=== PATIENT | male | born 1955 | race Caucasian/White ===

== ENCOUNTER → 2017-12-07 | Outpatient (CLI) | payer OTHER ==
[~2017-12-07] MED LIST: ATEN25 PO; Bactrim Ds Tab1 EACH PO; HYDACE5 PO; HYDCHL12.5 PO; LISHYD2012; LOSARTAN POTAS100 MG PO; METO25ER PO; NAPR500 PO; PRAV20 PO; Protonix40 MG PO; RXHYDACE PO; RXNAPNA550 PO; TAMS.4ER PO
== END ==
LOC: LAB EV 22:15
DX: R10.13 Epigastric pain (principal)
CPT/HCPCS: 87338

== ENCOUNTER 2018-01-05 14:22 | Inpatient (IN) | payer OTHER ==
[~2018-01-05] VITALS: Ht 167.6 cm; Wt 99.8 kg
[~2018-01-05 14:22] MED LIST changes: +CHOL10002 PO; +CYCL10 PO; +HYDR1TAB94 PO; +NAPR500ERA PO; +ONDA4 PO; +PANT20 PO
[2018-01-05 15:07] LABS: BASOPHILS ABSOLUTE AUTO 0.01 K/mm3 (0.00-0.23); BASOPHILS PERCENT AUTO 0 % (0-2); EOSINOPHILS PERCENT AUTO 0 % (0-6); Hematocrit 45.9 % (37.0-53.0); Hemoglobin 15.3 g/dL (13.5-17.5); IMMATURE GRAN ABSOLUTE AUTO 0.02 K/mm3 (0.00-0.10); IMMATURE GRAN PERCENT AUTO 0 % (0-1); LYMPHOCYTES PERCENT AUTO 5 % (21-46); MONOCYTES ABSOLUTE AUTO 1.19 K/mm3 (0.16-1.47); MONOCYTES PERCENT AUTO 12 % (4-13); Mean Corpuscular HGB 31.1 pg (26.0-34.0); Mean Corpuscular HGB Conc 33.3 g/dL (31.5-36.5); Mean Corpuscular Volume 93 fL (80-100); Mean Platelet Volume 10.6 fL (9.1-12.4); NEUTROPHILS ABSOLUTE AUTO 8.12 K/mm3 (1.96-9.15); NEUTROPHILS PERCENT AUTO 83 % (41-73); Platelet Count 197 K/mm3 (150-400); RDW Coefficient Variation 13.5 % (11.7-14.2); RDW Standard Deviation 46.3 fL (35.1-46.3); Red Blood Cell Count 4.92 M/mm3 (4.30-5.90); White Blood Cell Count 9.84 K/mm3 (4.00-11.30)
[2018-01-05 15:20] LABS: Alanine Aminotransfer (ALT/SGP 29 U/L (12-78); Albumin, Blood 3.8 g/dL (3.4-5.0); Alk Phos 66 U/L (50-136); Anion Gap 8 mmol/L (6-16); Aspartate Aminotrans (AST/SGOT 19 U/L (12-37); Bilirubin, Total 0.8 mg/dL (0.1-1.0); Blood Urea Nitrogen 21 mg/dL (8-24); Bun/Creatinine Ratio 24.2 (12.0-20.0); CO2, Blood 34 mmol/L (21-32); Calcium, Blood 9.4 mg/dL (8.5-10.1); Chloride, Blood 97 mmol/L (98-108); Creatinine, Blood 0.87 mg/dL (0.60-1.20); Globulin, Blood 3.9 g/dL (2.2-4.0); Glomerular Filtration Rate >60 (60-); Glucose, Blood 138 mg/dL (70-99); Potassium, Blood 3.6 mmol/L (3.5-5.5); Sodium, Blood 139 mmol/L (136-145); Total Protein, Blood 7.7 g/dL (6.4-8.2)
[2018-01-06 05:41] LABS: BASOPHILS PERCENT AUTO 0 % (0-2); EOSINOPHILS ABSOLUTE AUTO 0.02 K/mm3 (0.00-0.68); EOSINOPHILS PERCENT AUTO 0 % (0-6); Hematocrit 42.1 % (37.0-53.0); Hemoglobin 13.9 g/dL (13.5-17.5); IMMATURE GRAN ABSOLUTE AUTO 0.02 K/mm3 (0.00-0.10); IMMATURE GRAN PERCENT AUTO 0 % (0-1); LYMPHOCYTES ABSOLUTE AUTO 0.64 K/mm3 (0.84-5.20); LYMPHOCYTES PERCENT AUTO 9 % (21-46); MONOCYTES ABSOLUTE AUTO 1.16 K/mm3 (0.16-1.47); MONOCYTES PERCENT AUTO 17 % (4-13); Mean Corpuscular Volume 94 fL (80-100); Mean Platelet Volume 10.6 fL (9.1-12.4); NEUTROPHILS ABSOLUTE AUTO 5.21 K/mm3 (1.96-9.15); NEUTROPHILS PERCENT AUTO 74 % (41-73); Platelet Count 166 K/mm3 (150-400); RDW Coefficient Variation 13.7 % (11.7-14.2); RDW Standard Deviation 47.1 fL (35.1-46.3); Red Blood Cell Count 4.49 M/mm3 (4.30-5.90); White Blood Cell Count 7.05 K/mm3 (4.00-11.30)
[2018-01-06 06:00] LABS: Anion Gap 7 mmol/L (6-16); Blood Urea Nitrogen 19 mg/dL (8-24); Bun/Creatinine Ratio 22.3 (12.0-20.0); CO2, Blood 32 mmol/L (21-32); Calcium, Blood 8.9 mg/dL (8.5-10.1); Chloride, Blood 103 mmol/L (98-108); Creatinine, Blood 0.85 mg/dL (0.60-1.20); Glomerular Filtration Rate >60 (60-); Glucose, Blood 127 mg/dL (70-99); Potassium, Blood 3.4 mmol/L (3.5-5.5); Sodium, Blood 142 mmol/L (136-145)
[2018-01-07 08:16] LABS: BASOPHILS ABSOLUTE AUTO 0.01 K/mm3 (0.00-0.23); BASOPHILS PERCENT AUTO 0 % (0-2); EOSINOPHILS ABSOLUTE AUTO 0.06 K/mm3 (0.00-0.68); EOSINOPHILS PERCENT AUTO 1 % (0-6); Hematocrit 39.8 % (37.0-53.0); Hemoglobin 12.9 g/dL (13.5-17.5); IMMATURE GRAN ABSOLUTE AUTO 0.03 K/mm3 (0.00-0.10); IMMATURE GRAN PERCENT AUTO 0 % (0-1); LYMPHOCYTES ABSOLUTE AUTO 0.48 K/mm3 (0.84-5.20); LYMPHOCYTES PERCENT AUTO 6 % (21-46); MONOCYTES ABSOLUTE AUTO 1.18 K/mm3 (0.16-1.47); MONOCYTES PERCENT AUTO 15 % (4-13); Mean Corpuscular HGB 30.4 pg (26.0-34.0); Mean Corpuscular HGB Conc 32.4 g/dL (31.5-36.5); Mean Corpuscular Volume 94 fL (80-100); Mean Platelet Volume 10.6 fL (9.1-12.4); NEUTROPHILS ABSOLUTE AUTO 6.19 K/mm3 (1.96-9.15); NEUTROPHILS PERCENT AUTO 78 % (41-73); Platelet Count 134 K/mm3 (150-400); RDW Coefficient Variation 13.5 % (11.7-14.2); RDW Standard Deviation 46.6 fL (35.1-46.3); Red Blood Cell Count 4.24 M/mm3 (4.30-5.90); White Blood Cell Count 7.95 K/mm3 (4.00-11.30)
[2018-01-07 08:36] LABS: Anion Gap 6 mmol/L (6-16); Blood Urea Nitrogen 14 mg/dL (8-24); Bun/Creatinine Ratio 19.9 (12.0-20.0); CO2, Blood 31 mmol/L (21-32); Calcium, Blood 8.3 mg/dL (8.5-10.1); Chloride, Blood 103 mmol/L (98-108); Creatinine, Blood 0.71 mg/dL (0.60-1.20); Glomerular Filtration Rate >60 (60-); Glucose, Blood 143 mg/dL (70-99); Potassium, Blood 3.9 mmol/L (3.5-5.5); Sodium, Blood 140 mmol/L (136-145)
[2018-01-09 05:46] LABS: BASOPHILS ABSOLUTE AUTO 0.01 K/mm3 (0.00-0.23); BASOPHILS PERCENT AUTO 0 % (0-2); EOSINOPHILS ABSOLUTE AUTO 0.13 K/mm3 (0.00-0.68); EOSINOPHILS PERCENT AUTO 1 % (0-6); Hematocrit 39.4 % (37.0-53.0); IMMATURE GRAN ABSOLUTE AUTO 0.04 K/mm3 (0.00-0.10); IMMATURE GRAN PERCENT AUTO 0 % (0-1); LYMPHOCYTES PERCENT AUTO 6 % (21-46); MONOCYTES ABSOLUTE AUTO 1.16 K/mm3 (0.16-1.47); MONOCYTES PERCENT AUTO 13 % (4-13); Mean Corpuscular HGB 30.8 pg (26.0-34.0); Mean Corpuscular Volume 93 fL (80-100); Mean Platelet Volume 10.1 fL (9.1-12.4); NEUTROPHILS ABSOLUTE AUTO 7.13 K/mm3 (1.96-9.15); NEUTROPHILS PERCENT AUTO 80 % (41-73); Platelet Count 143 K/mm3 (150-400); RDW Coefficient Variation 13.1 % (11.7-14.2); RDW Standard Deviation 44.7 fL (35.1-46.3); Red Blood Cell Count 4.22 M/mm3 (4.30-5.90); White Blood Cell Count 8.97 K/mm3 (4.00-11.30)
[2018-01-09 06:08] LABS: Anion Gap 9 mmol/L (6-16); Blood Urea Nitrogen 16 mg/dL (8-24); Bun/Creatinine Ratio 26.3 (12.0-20.0); CO2, Blood 29 mmol/L (21-32); Calcium, Blood 8.2 mg/dL (8.5-10.1); Chloride, Blood 101 mmol/L (98-108); Creatinine, Blood 0.61 mg/dL (0.60-1.20); Glomerular Filtration Rate >60 (60-); Glucose, Blood 139 mg/dL (70-99); Magnesium, Blood 2.3 mg/dL (1.6-2.4); Potassium, Blood 3.5 mmol/L (3.5-5.5); Sodium, Blood 139 mmol/L (136-145); Triglycerides 168 mg/dL (30-160)
[2018-01-10 06:33] LABS: Anion Gap 9 mmol/L (6-16); Blood Urea Nitrogen 15 mg/dL (8-24); CO2, Blood 27 mmol/L (21-32); Calcium, Blood 8.4 mg/dL (8.5-10.1); Chloride, Blood 101 mmol/L (98-108); Creatinine, Blood 0.68 mg/dL (0.60-1.20); Glomerular Filtration Rate >60 (60-); Glucose, Blood 137 mg/dL (70-99); Magnesium, Blood 2.4 mg/dL (1.6-2.4); Phosphorus, Blood 3.2 mg/dL (2.5-4.9); Potassium, Blood 3.5 mmol/L (3.5-5.5); Sodium, Blood 137 mmol/L (136-145)
== END 2018-01-10 16:38 | disposition home or self-care (01) | DRG 355 ==
LOC: ER 14:22 → SURS 17:38
PROVIDERS: Family Medicine; Internal Medicine; Physician Assistant; Surgery
PROC: 0D9670Z Drainage of Stomach with Drainage Device, Via Natural or Artificial Opening (ICD-10-PCS; 2018-01-05)
PROC: 0WUF0JZ Supplement Abdominal Wall with Synthetic Substitute, Open Approach (ICD-10-PCS; principal; 2018-01-06 09:00)
DX: K43.0 Incisional hernia with obstruction, without gangrene (principal); M51.36 Other intervertebral disc degeneration, lumbar region; M19.90 Unspecified osteoarthritis, unspecified site; I10 Essential (primary) hypertension; E87.6 Hypokalemia; E83.39 Other disorders of phosphorus metabolism; K40.20 Bilateral inguinal hernia, without obstruction or gangrene, not specified as recurrent; Z79.899 Other long term (current) drug therapy; Z88.5 Allergy status to narcotic agent
CPT/HCPCS: 36415; 74018; 74019; 74177; 80048; 80053; 82947; 83690; 83735; 84100; 84478; 85025; 87070; 87081; 88304; 94760; 96374; 96375; 99285-25; C1781; C9113; J0330; J0360; J0610; J0694; J1100; J1650; J1885; J2001; J2250; J2370; J2405; J2710; J2765; J3010; J3370; J3411; J3475; J3480; J7030; J7070; J7120; J7131; Q9967

== ENCOUNTER 2018-04-02 07:30 | Day surgery (SDC) | payer OTHER ==
[~2018-04-02] VITALS: Ht 170.2 cm; Wt 100.7 kg
[2018-04-02] MEDS ORDERED: FISH OIL + D31 EACH (08:02)
--- NOTE | 2018-04-02 09:16 | NUR ---
04/02/18 0916 Mercy Guerrero late entry 0900 UPDATED PT ON ROOM DELAY, PREVIOUS CASE RUNNING OVER. PT RESTING IN BED, BED IN LOWEST POSITION, CALL LIGHT IN REACH. 912 PT STILL RESTING IN BED. CALL LGIHT IN REACH.
--- NOTE | 2018-04-02 10:19 | NUR ---
04/02/18 [id number] Mercy Guerrero PT READY FOR DC HOME, WAITING FOR RIDE. PT DENIES QUESTIONS ON DC INSTRUCTIONS AND IS RESTING IN RECLINER IN SDU 2. CALL LIGHT IN REACH.
== END 2018-04-02 10:18 | disposition home or self-care (01) ==
LOC: ORSCSDS 07:30
PROVIDERS: Internal Medicine Gastroenterology
PROC: 0DBK8ZX Excision of Ascending Colon, Via Natural or Artificial Opening Endoscopic, Diagnostic (ICD-10-PCS; principal; 2018-04-02 08:45)
PROC: 0DBH8ZX Excision of Cecum, Via Natural or Artificial Opening Endoscopic, Diagnostic (ICD-10-PCS; principal; 2018-04-02 08:45)
PROC: 0DBM8ZX Excision of Descending Colon, Via Natural or Artificial Opening Endoscopic, Diagnostic (ICD-10-PCS; principal; 2018-04-02 08:45)
DX: Z86.010 Personal history of colon polyps (principal); Z12.11 Encounter for screening for malignant neoplasm of colon; D12.2 Benign neoplasm of ascending colon; D12.0 Benign neoplasm of cecum; D12.4 Benign neoplasm of descending colon; K57.30 Diverticulosis of large intestine without perforation or abscess without bleeding; K64.8 Other hemorrhoids; I10 Essential (primary) hypertension; K21.9 Gastro-esophageal reflux disease without esophagitis; Z79.899 Other long term (current) drug therapy
CPT/HCPCS: 88305; J7120

== ENCOUNTER 2022-04-24 07:56 | Day surgery (SDC) | payer OTHER ==
[~2022-04-24] VITALS: Ht 167.6 cm; Wt 95.0 kg
[~2022-04-24 07:56] MED LIST changes: +FISH OIL + D31 EACH
[2022-04-24] MEDS ORDERED: Calcium Acetat667 MG (08:47)
[2022-04-24] MEDS ORDERED: Vitamin C100 M1 (08:47)
== END 2022-04-24 10:20 | disposition home or self-care (01) ==
LOC: ORSCSDS 07:56
PROVIDERS: Internal Medicine Gastroenterology
PROC: 0DJD8ZZ Inspection of Lower Intestinal Tract, Via Natural or Artificial Opening Endoscopic (ICD-10-PCS; principal; 2022-04-24 09:30)
DX: Z12.11 Encounter for screening for malignant neoplasm of colon (principal); Z86.010 Personal history of colon polyps; Z80.0 Family history of malignant neoplasm of digestive organs; K64.4 Residual hemorrhoidal skin tags; I10 Essential (primary) hypertension; E78.5 Hyperlipidemia, unspecified; Z79.82 Long term (current) use of aspirin; Z79.899 Other long term (current) drug therapy
CPT/HCPCS: J2704; J7120

== ENCOUNTER → 2022-05-15 | Outpatient (CLI) | payer OTHER ==
[~2022-05-15] MED LIST changes: +Calcium Acetat667 MG; +Vitamin C100 M1
[2022-05-15 12:11] LABS: BASOPHILS ABSOLUTE AUTO 0.02 K/mm3 (0.00-0.23); BASOPHILS PERCENT AUTO 0 % (0-2); EOSINOPHILS ABSOLUTE AUTO 0.06 K/mm3 (0.00-0.68); EOSINOPHILS PERCENT AUTO 1 % (0-6); Hematocrit 40.2 % (37.0-53.0); IMMATURE GRAN ABSOLUTE AUTO 0.04 K/mm3 (0.00-0.10); IMMATURE GRAN PERCENT AUTO 1 % (0-1); LYMPHOCYTES ABSOLUTE AUTO 0.45 K/mm3 (0.84-5.20); LYMPHOCYTES PERCENT AUTO 5 % (21-46); MONOCYTES ABSOLUTE AUTO 1.08 K/mm3 (0.16-1.47); MONOCYTES PERCENT AUTO 13 % (4-13); Mean Corpuscular HGB 31.2 pg (26.0-34.0); Mean Corpuscular HGB Conc 34.8 g/dL (31.5-36.5); Mean Corpuscular Volume 90 fL (80-100); NEUTROPHILS ABSOLUTE AUTO 6.92 K/mm3 (1.96-9.15); NEUTROPHILS PERCENT AUTO 81 % (41-73); RDW Coefficient Variation 13.6 % (11.7-14.2); Red Blood Cell Count 4.49 M/mm3 (4.30-5.90); White Blood Cell Count 8.57 K/mm3 (4.00-11.30)
[2022-05-15 12:19] LABS: Albumin, Blood 3.5 g/dL (3.4-5.0); Albumin/Globulin Ratio 1.3 (0.8-1.8); Bilirubin, Total 0.8 mg/dL (0.1-1.0); Bun/Creatinine Ratio 29.9 (12.0-20.0); Calcium, Blood 9.1 mg/dL (8.5-10.1); Creatinine, Blood 0.87 mg/dL (0.60-1.20); Globulin, Blood 2.8 g/dL (2.2-4.0); Potassium, Blood 4.1 mmol/L (3.5-5.5); Total Protein, Blood 6.3 g/dL (6.4-8.2)
[2022-05-15 14:15] LABS: Platelet Count 118 K/mm3 (150-400)
== END | disposition home or self-care (01) ==
LOC: LAB SHORT 12:03 → LAB 12:03
PROVIDERS: Family Medicine
DX: R55 Syncope and collapse (principal)
CPT/HCPCS: 80053; 85025

== ENCOUNTER 2024-04-03 18:33 | Observation (INO) | payer OTHER ==
[~2024-04-03] VITALS: Ht 167.6 cm; Wt 95.8 kg
[2024-04-04] MEDS ORDERED: Aspirin 81 MG Chew PO ONE (02:45)
[2024-04-04] MEDS ORDERED: FLU VACC TS2024-25(6MOS UP)/PF 45 MCG/0.5 ML SYRINGE IM ONE (02:50)
[2024-04-04] MEDS ORDERED: NS 1,000 ML IV SCH (02:55)
[2024-04-04] MEDS ORDERED: Ondansetron HCl 2 MG / ML 2ML Vial IV PRN (02:55)
[2024-04-04] MEDS ORDERED: FentaNYL Citrate 50 MCG/ML 2 ML Injection IV PRN (02:55)
[2024-04-04] MEDS ORDERED: Nitroglycerin 0.4 MG SUBL SL PRN (02:55)
[2024-04-04] MEDS ORDERED: Mag Hydrox/Al Hydrox/Simeth 18 ML,Lidocaine 2% Viscous Soln 9 ML,Atropine/Scopalam/Hyos... PO PRN (03:05)
[2024-04-04 04:54] LABS: BASOPHILS ABSOLUTE AUTO 0.02 K/mm3 (0.00-0.23); BASOPHILS PERCENT AUTO 0 % (0-2); EOSINOPHILS ABSOLUTE AUTO 0.13 K/mm3 (0.00-0.68); EOSINOPHILS PERCENT AUTO 3 % (0-6); IMMATURE GRAN ABSOLUTE AUTO 0.01 K/mm3 (0.00-0.10); IMMATURE GRAN PERCENT AUTO 0 % (0-1); LYMPHOCYTES PERCENT AUTO 11 % (21-46); MONOCYTES ABSOLUTE AUTO 0.84 K/mm3 (0.16-1.47); MONOCYTES PERCENT AUTO 18 % (4-13); Mean Corpuscular HGB 33.2 pg (26.0-34.0); Mean Corpuscular HGB Conc 35.1 g/dL (31.5-36.5); Mean Corpuscular Volume 94 fL (80-100); Mean Platelet Volume 10.4 fL (9.1-12.4); NEUTROPHILS ABSOLUTE AUTO 3.17 K/mm3 (1.96-9.15); NEUTROPHILS PERCENT AUTO 68 % (41-73); Platelet Count 127 K/mm3 (150-400); RDW Standard Deviation 44.8 fL (35.1-46.3); Red Blood Cell Count 3.92 M/mm3 (4.30-5.90); White Blood Cell Count 4.67 K/mm3 (4.00-11.30)
[2024-04-04 05:26] LABS: Albumin, Blood 3.5 g/dL (3.4-5.0); Albumin/Globulin Ratio 1.3 (0.8-1.8); Bilirubin, Total 0.4 mg/dL (0.1-1.0); Bun/Creatinine Ratio 28.8 (12.0-20.0); Calcium, Blood 8.8 mg/dL (8.5-10.1); Creatinine, Blood 0.8 mg/dL (0.60-1.20); Globulin, Blood 2.7 g/dL (2.2-4.0); Potassium, Blood 3.8 mmol/L (3.5-5.5); Total Protein, Blood 6.2 g/dL (6.4-8.2)
[2024-04-04] MEDS ORDERED: Atorvastatin 40 MG Tab PO SCH (06:00)
[2024-04-04] MEDS ORDERED: Clopidogrel Bisulfate 300 MG Cap PO ONE (06:00)
[2024-04-04 06:21] LABS: Anti-Xa UFH, PHA Monitoring <0.10 IU/mL; International Normalized Ratio 0.99; Prothrombin Time Results 10.6 Sec (9.7-11.5)
[2024-04-04] MEDS ORDERED: Heparin Sodium 5000 Units/ML 1ML MDV IV ONE ×2 (06:55→09:55)
[2024-04-04] MEDS ORDERED: Heparin Sodium,Porcine/0.5 NS 500 ML IV SCH (06:55)
[2024-04-04] MEDS ORDERED: Aspirin 81 MG Chew PO SCH (09:00)
[2024-04-04] MEDS ORDERED: Enoxaparin 40 MG/0.4 ML SYR SC SCH (09:00)
[2024-04-04] MEDS ORDERED: Clopidogrel Bisulfate 75 MG Tab ONE (09:16)
[2024-04-04] MEDS ORDERED: CALCIUM CIT 311 EAC7 PO (12:01)
[2024-04-04] MEDS ORDERED: ATOR10 PO (12:02)
[2024-04-04] MEDS ORDERED: AMLO5 PO (12:03)
[2024-04-04 12:17] VITALS: BP 154/84
--- NOTE | 2024-04-04 12:26 | NUR ---
arrival to pcu patient arrived to pcu from [facility] via [facility] and transfered from [facility] to pcu bed independently and walked from the hallway into the room. patient is independent at baseline and instructed to call and dont fall. patient verbalized understanding. patient is alert and oriented x4. neuro is inact. perrla. patient denies pain, chest pain/pressure or shortness of breath. patient voids independently and last bowel movement was yesterday. patient has bruising scattered on arms from playing with his puppy, otherwise skin is clean dry and intact. see shift assessment for further detials. plan for stress test and doing resting portion today and stress tomorrow. echo in room now.
[2024-04-04 15:38] VITALS: BP 135/70
--- NOTE | 2024-04-04 17:18 | NUR ---
shift summary neuro remains intact and unchanged. vitals remain stable. tele sinus rhythm. plan to be npo at midnight besides water for stress test tomorrow morning and no caffiene past 1900 tonight. patient aware and verbalized understanding. no acute changes. plan remains up to date
[2024-04-04 20:31] VITALS: BP 159/76
[2024-04-04 23:28] VITALS: BP 148/94
[2024-04-05 03:58] VITALS: BP 159/74
[2024-04-05 04:32] LABS: BASOPHILS ABSOLUTE AUTO 0.02 K/mm3 (0.00-0.23); BASOPHILS PERCENT AUTO 1 % (0-2); EOSINOPHILS ABSOLUTE AUTO 0.13 K/mm3 (0.00-0.68); EOSINOPHILS PERCENT AUTO 3 % (0-6); Hematocrit 37.4 % (37.0-53.0); Hemoglobin 13.1 g/dL (13.5-17.5); IMMATURE GRAN ABSOLUTE AUTO 0.01 K/mm3 (0.00-0.10); IMMATURE GRAN PERCENT AUTO 0 % (0-1); LYMPHOCYTES ABSOLUTE AUTO 0.57 K/mm3 (0.84-5.20); LYMPHOCYTES PERCENT AUTO 13 % (21-46); MONOCYTES ABSOLUTE AUTO 0.55 K/mm3 (0.16-1.47); MONOCYTES PERCENT AUTO 13 % (4-13); Mean Corpuscular HGB 32.9 pg (26.0-34.0); Mean Corpuscular Volume 94 fL (80-100); Mean Platelet Volume 10.2 fL (9.1-12.4); NEUTROPHILS PERCENT AUTO 70 % (41-73); Platelet Count 123 K/mm3 (150-400); RDW Coefficient Variation 12.8 % (11.7-14.2); RDW Standard Deviation 44.4 fL (35.1-46.3); Red Blood Cell Count 3.98 M/mm3 (4.30-5.90); White Blood Cell Count 4.28 K/mm3 (4.00-11.30)
[2024-04-05 04:49] LABS: Albumin, Blood 3.4 g/dL (3.4-5.0); Anion Gap 8 mmol/L (3-11); Blood Urea Nitrogen 17 mg/dL (8-24); Bun/Creatinine Ratio 24.1 (12.0-20.0); CO2, Blood 28 mmol/L (21-32); Calcium, Blood 9.1 mg/dL (8.5-10.1); Chloride, Blood 109 mmol/L (98-108); Creatinine, Blood 0.71 mg/dL (0.60-1.20); Glomerular Filtration Rate 99 (60-); Glucose, Blood 131 mg/dL (70-99); Magnesium, Blood 2.2 mg/dL (1.6-2.4); Phosphorus, Blood 3.2 mg/dL (2.5-4.9); Potassium, Blood 3.9 mmol/L (3.5-5.5); Sodium, Blood 141 mmol/L (136-145)
--- NOTE | 2024-04-05 05:20 | NUR ---
SHIFT SUMMARY PATIENT ALERT AND ORIENTED x4. ABLE TO MAKE NEEDS KNOWN TO STAFF. BP STABLE. ON TELE, SR DURING THE NIGHT. DENIED CHEST PAIN THIS SHIFT. ON RA WITH SPO2 >90%. PATIENT AMBULATING INTO BATHROOM INDEPENDENTLY, ADEQUATE OUTPUT. PATIENT NPO SINCE 0000 AWAITING SECOND PORTION OF STRESS TEST. NO OTHER CHANGES, WILL REPORT TO DAY SHIFT RN.
[2024-04-05] MEDS ORDERED: Regadenoson 0.4 MG/5 ML SYRINGE ONE ×2 (07:20→08:22)
[2024-04-05] MEDS ORDERED: Caffeine Citrated 60 MG/3 ML Vial ONE (07:20)
--- NOTE | 2024-04-05 07:30 | NUR ---
THIS RN ASSUMING CARE OF PT AFTER REPORT FROM ELPIDIO, RN. PT IS AWAKE AND ALERT WHEN THIS RN ENTERS ROOM. HE IS PLESANT AND COOPERATIVE. AXO X 4. VSS AT THIS TIME. NUC MED HAS BEEN IN THE ROOM THIS AM TO START 2ND PORTION OF STRESS TEST. PT DENIES ANY FORM OF C/P OR SOB. HEPARIN GTT HAS BEEN DCD. PT HR IS 80S AND SINUS, LUNG SOUNDS CLEAR ON RA SATTING 95%. HE DENIES ABD PAIN OR ANY ISSUE WITH URINATION. HE IS INDEPENDENT IN ROOM. AMBULATED STEADY W/O ASSISTANCE. MORNING MEDS GIVEN B/P ELEVATED SYSTOLICALLY 160S. IV TO RFA INTACT AND FLOWS WELL. PT TO BE PROVIDED WITH MEAL AFTER STRESS TEST COMPLETE. PLAN FOR DC HOME TODAY IF STRESS TEST IS NOT CONCERNING. PT AGREEABLE TO PLAN OF CARE. EDUCATED SURGICAL ASST LIGHT AND DENIES NEEDS AT THIS TIME.
[2024-04-05 08:14] VITALS: BP 160/85
[2024-04-05] MEDS ORDERED: Losartan Potassium 50 MG Tab PO SCH (09:00)
[2024-04-05] MEDS ORDERED: Clopidogrel Bisulfate 75 MG Tab PO SCH (09:00)
[2024-04-05 11:04] VITALS: BP 151/69
--- NOTE | 2024-04-05 12:05 | NUR ---
GAME AGENT IN ROOM TO DISCUSS FURTHER PLAN OF CARE, PT TO F/U OUTPATIENT BASED OFF DISCUSSION WITH MD AND STRESS TEST RESULTS.
[2024-04-05] MEDS ORDERED: LIPITOR80 MG PO (13:55)
[2024-04-05] MEDS ORDERED: NITR.4SL SL (13:57)
[2024-04-05] MEDS ORDERED: ISOSORBIDE MONO60 MG PO (13:58)
[2024-04-05] MEDS ORDERED: ASPI81CH PO (13:59)
--- NOTE | 2024-04-05 14:27 | NUR ---
PT DCD HOME IN GOOD CONDITION WITH , PT DENIES ANY C/P ON DISHCARGE. SCRIPTS SENT TO [facility]. PT PROVIDED WITH D/C INSTRUCTIONS. ALL QUESTIONS ANSWRED. PT IV DCD AND WHEELED TO PARKING LOT.
== END 2024-04-05 14:21 | disposition home or self-care (01) ==
LOC: ER 18:33 → PCU 18:34 → ERHOLD 18:34 → PCU 04-04 11:40
PROVIDERS: Family Medicine; ADMIT Internal Medicine
DX: R07.89 Other chest pain (principal); I10 Essential (primary) hypertension; E78.5 Hyperlipidemia, unspecified; E66.9 Obesity, unspecified; D86.89 Sarcoidosis of other sites; D69.6 Thrombocytopenia, unspecified; Z68.35 Body mass index [BMI] 35.0-35.9, adult; Z79.899 Other long term (current) drug therapy; Z88.5 Allergy status to narcotic agent
CPT/HCPCS: 36415; 71046; 71260; 78452; 80053; 80069; 83735; 83880; 84484; 85025; 85379; 85520; 85610; 85730; 93005; 93010; 93017; 93306; 96361; 96365; 96372; 99285-25; A9270; A9500; G0378; J0706; J1644; J1650; J2785; J7030; Q9967

== ENCOUNTER 2024-04-23 09:04 | Day surgery (SDC) | payer OTHER ==
[~2024-04-23] VITALS: Ht 170.2 cm; Wt 95.8 kg
[2024-04-23] VITALS (9 sets, daily range): BP systolic 128–175; BP diastolic 72–93
[~2024-04-23 09:04] MED LIST changes: +AMLO5 PO; +ASPI81CH PO; +ATOR10 PO; +CALCIUM CIT 311 EAC7 PO; +ISOSORBIDE MONO60 MG PO; +LIPITOR80 MG PO; +NITR.4SL SL
[2024-04-23] MEDS ORDERED: PRAV20 PO (09:38)
[2024-04-23] MEDS ORDERED: LOSA50 PO (09:38)
[2024-04-23] MEDS ORDERED: HYDCHL25 PO (09:38)
[2024-04-23] MEDS ORDERED: NS 1,000 ML IV ONE ×2 (10:22→10:24)
[2024-04-23] MEDS ORDERED: Nitroglycerin 2 MG/20 ML BTL ONE (10:22)
[2024-04-23] MEDS ORDERED: Verapamil HCL 2.5 MG/ML 2ML Injection ONE (10:22)
[2024-04-23] MEDS ORDERED: Heparin Sodium 1000 Units/ML 10ML MDV ONE ×2 (10:22→11:51)
[2024-04-23] MEDS ORDERED: NS 250 ML IV ONE ×2 (10:22→12:14)
[2024-04-23] MEDS ORDERED: Midazolam HCl 1MG / ML 2ML Vial ONE ×2 (10:24→12:01)
[2024-04-23] MEDS ORDERED: FentaNYL Citrate 50 MCG/ML 2 ML Injection ONE ×2 (10:24→11:39)
[2024-04-23] MEDS ORDERED: Aspirin 81 MG Chew ONE (10:31)
--- NOTE | 2024-04-23 12:50 | NUR ---
PATIENT ARRIVED TO RECOVERY ROOM WITH HOB FLAT. RIGHT GROIN SITE C/D/I SOFT/NONTENDER, NO EVIDENCE OF BLEEDING. VSS ON RA. RIGHT ULNAR TR BAND IN PLACE. SITE C/D/I, NO EVIDENCE OF BLEEDING. PATIENT DENYING ANY PAIN. PATIENT CONVERSING APPROPRIATELY.
--- NOTE | 2024-04-23 15:08 | NUR ---
AMBULATED PATIENT EARLIER AFTER AIR REMOVED FROM TR BAND, PATIENT TOLERATED AMBULATION WELL. RETURNED TO BED. ARRIVED LATER AND T-R BAND REMOVED, CLOTH DOT PLACED, PENDING PROVIDER DISCUSSION/DISCHARGE HOME. AT BEDSIDE, VSS, BOTH SITES INTACT, SOFT, NO CONCERNS TO RIGHT RADIAL AND RIGHT FEMORAL, DISCUSSED CONCERNING S/SX, HOME CARE, USE OF LEFT ARM AND MONITORING SITES WITH PATIENT/. DENY CONCERNS OTHERWISE.
--- NOTE | 2024-04-23 15:45 | NUR ---
ARRIVED EARLIER, PROVIDER ARRIVED AND SITES NOTED, INTACT, DISCUSSED D/C PLAN AND GIVEN D/C PAPERWORK, LEFT AT PRESENT TIME WITH TAKEN TO PRIVATE VEHICLE VIA W/C, IV REMOVED PRIOR CANNULA INTACT, D/C FROM FACILITY AT 1340.
== END 2024-04-23 16:15 | disposition home or self-care (01) ==
LOC: MHTC 09:04
DX: I25.10 Atherosclerotic heart disease of native coronary artery without angina pectoris (principal); Q25.46 Tortuous aortic arch; R07.89 Other chest pain; I10 Essential (primary) hypertension; E78.5 Hyperlipidemia, unspecified; E66.9 Obesity, unspecified; Z68.35 Body mass index [BMI] 35.0-35.9, adult; D69.6 Thrombocytopenia, unspecified; D86.9 Sarcoidosis, unspecified; Z88.5 Allergy status to narcotic agent; Z79.82 Long term (current) use of aspirin; Z79.899 Other long term (current) drug therapy
CPT/HCPCS: 76937; 85347; 93454; 93571; 99152; 99153; A9270; C1760; C1769; C1887; C1894; J1644; J2250; J3010; J7030; J7050; Q9967